=== PATIENT | male | born 1985 | race American Indian/Alaskan Native ===

== ENCOUNTER 2019-07-07 13:36 | Inpatient (IN) | payer MEDICAID ==
--- NOTE | 2019-07-07 14:30 | Emergency Department Report ---
ED Chest Pain HPI - General Chief Complaint: Chest Pain Stated Complaint: CHEST PAIN Time Seen by Provider: 07/07/19 14:27 Source: patient, EMS Mode of arrival: Stretcher Limitations: Physical Limitation - History of Present Illness Initial Comments: This is a 34-year-old man with severely disabling juvenile rheumatoid arthritis. He has had chest pain for the last 2 days. It is somewhat pleuritic but not associated with shortness of breath. Does not report significant cough. Substernal dull left nonradiating. Patient states he has not had this before. He has no prior history of VTE. Patient has a history of bilateral femur fractures. He is bedridden. His mother is on Coumadin for previous VTE. She states that she is having a hematological workup to see if she can, off Coumadin now. MD Complaint: chest pain Quality: dull Consistency: intermittent, now resolved Worsens With: inspiration re: denies: nausea, vomting, diaphoresis Other Symptoms: denies: cough, fever, syncope Treatments Prior to Arrival: none - Related Data Previous Rx's Medication Instructions Recorded Last Taken Type traMADol [Ultram 50 MG tab] 50 mg PO Q6HR PRN #12 tablet 04/01/16 Unknown Rx Acetaminophen/Codeine [Tylenol 1 tab PO Q6H PRN #16 tab 05/11/18 Unknown Rx /Codeine # 3 tab] Ibuprofen [Motrin] 600 mg PO Q8H PRN #15 tablet 05/11/18 Unknown Rx cephALEXin [Keflex] 500 mg PO Q8HR 7 Days #21 cap 05/11/18 Unknown Rx Allergies Allergy/AdvReac Type Severity Reaction Status Date / Time No Known Allergies Allergy Verified 05/11/18 14:16 Heart Score - HEART Score History: Slightly suspicious EKG: Non-specific Age: < 45 Risk factors: 1-2 risk factors Troponin: < normal limit HEART Score: 2 - Critical Actions Critical Actions: 0-3 pts:0.9-1.7%risk of adverse cardiac event.Candidate for discharge ED Review of Systems ROS: Stated complaint: CHEST PAIN Other details as noted in HPI Constitutional: denies: chills, fever Eyes: denies: eye pain, eye discharge, vision change ENT: denies: ear pain, throat pain Respiratory: denies: cough, shortness of breath, wheezing Cardiovascular: chest pain. denies: palpitations Endocrine: no symptoms reported Gastrointestinal: denies: abdominal pain, nausea, diarrhea Genitourinary: denies: urgency, dysuria Musculoskeletal: denies: back pain, joint swelling, arthralgia Skin: denies: rash, lesions Neurological: denies: headache, weakness, paresthesias Psychiatric: denies: anxiety, depression Hematological/Lymphatic: denies: easy bleeding, easy bruising ED Past Medical Hx - Past Medical History Previous Medical History?: Yes Hx Arthritis: Yes (rheumatoid) Additional medical history: bilateral femur - Surgical History Past Surgical History?: Yes Additional Surgical History: bilateral femur surgery - Social History Smoking Status: Never Smoker Substance Use Type: Alcohol - Medications Home Medications: Home Medications Medication Instructions Recorded Confirmed Last Taken Type traMADol [Ultram 50 MG tab] 50 mg PO Q6HR PRN #12 tablet 04/01/16 Unknown Rx Acetaminophen/Codeine [Tylenol 1 tab PO Q6H PRN #16 tab 05/11/18 Unknown Rx /Codeine # 3 tab] Ibuprofen [Motrin] 600 mg PO Q8H PRN #15 tablet 05/11/18 Unknown Rx cephALEXin [Keflex] 500 mg PO Q8HR 7 Days #21 cap 05/11/18 Unknown Rx ED Physical Exam - General Limitations: Physical Limitation General appearance: alert, in no apparent distress - Head Head exam: Present: atraumatic, normocephalic - Eye Eye exam: Present: normal appearance. Absent: scleral icterus - ENT ENT exam: Present: mucous membranes moist - Neck Neck exam: Absent: tenderness, meningismus, full ROM (Limited range of motion) - Respiratory Respiratory exam: Present: normal lung sounds bilaterally. Absent: respiratory distress, chest wall tenderness - Cardiovascular Cardiovascular Exam: Present: normal rhythm, tachycardia. Absent: systolic murmur, diastolic murmur, rubs, gallop - GI/Abdominal GI/Abdominal exam: Present: soft, normal bowel sounds. Absent: distended, tenderness, guarding, rebound, rigid - Rectal Rectal exam: Present: deferred - Extremities Exam Extremities exam: Present: other (both legs held in the fixed flexed position at the knee. There is no gross calf tenderness. There is disabling joint deformity of both hands. There is atrophy of both the upper and lower extremities.). Absent: pedal edema - Back Exam Back exam: Present: other (unable to visualize) - Neurological Exam Neurological exam: Present: alert, oriented X3, CN II-XII intact (as tested), motor sensory deficit (patient has extremely limited motion of both his upper and lower extremities. 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 Absent: rash ED Course Vital Signs 07/07/19 07/07/19 07/07/19 14:13 14:21 14:28 Temperature 98.9 F 98.9 F Pulse Rate 109 H 109 H 109 H Respiratory 27 H 27 H Rate Blood Pressure 136/97 Blood Pressure 136/97 [Left] O2 Sat by Pulse 100 100 Oximetry - Reevaluation(s) Reevaluation #1: An EJ was placed right neck without difficulty. I cannot obtain a CTA. This the patient's only intravenous access. We will have to go with radionuclide study. The patient will be admitted to Dr. Brar for further care and evaluation we will see if he would like to begin empiric anticoagulation. 07/07/19 17:13 - EJ/Peripheral Line Neck R Time Out Performed: Yes Indications: nurses unable to establis Skin Cleansed in Sterile Fashion: Yes Size: 20 Dressing Placed: Tegaderm Patient Tolerated Procedure: well SHELLY score - Shelly Score Age > 65: (0) No Aspirin use within the Past 7 Days: (0) No 3 or more CAD Risk Factors: (0) No 2 or more Angina events in past 24 hrs: (0) No Known CAD with more than 50% Stenosis: (0) No Elevated Cardiac Markers: (0) No ST Deviation Greater than 0.5mm: (0) No SHELLY Score: 0 ED Medical Decision Making - Lab Data Result diagrams: 07/07/19 15:28 07/07/19 15:30 Laboratory Results - last 24 hr 07/07/19 07/07/19 07/07/19 15:28 15:29 15:30 WBC 6.7 RBC 4.75 Hgb 12.9 Hct 38.9 MCV 82 L MCH 27 L MCHC 33 RDW 14.2 Plt Count 222 Lymph % (Auto) 12.5 L [place] % (Auto) 6.4 Eos % (Auto) 2.6 Baso % (Auto) 0.6 Lymph # 0.8 L [place] # 0.4 Eos # 0.2 Baso # 0.0 Seg Neutrophils % 77.9 H Seg Neutrophils # 5.2 PT 13.1 INR 1.02 APTT 29.5 D-Dimer 848.66 H Sodium 139 Potassium 3.9 Chloride 100.7 Carbon Dioxide 25 Anion Gap 17 BUN 6 L Creatinine 0.4 L Estimated GFR > 60 BUN/Creatinine Ratio 15 Glucose 78 Calcium 9.3 Total Bilirubin 0.30 Direct Bilirubin < 0.2 Indirect Bilirubin 0.1 AST 14 ALT 8 Alkaline Phosphatase 127 Troponin T < 0.010 Total Protein 8.1 Albumin 3.9 Albumin/Globulin Ratio 0.9 Urine Color Urine Turbidity Urine pH Ur Specific [place] Urine Protein Urine Glucose (UA) Urine Ketones Urine Blood Urine Nitrite Urine Bilirubin Urine Urobilinogen Ur Leukocyte Esterase Urine WBC (Auto) Urine RBC (Auto) U Epithel Cells (Auto) Urine Mucus Urine Opiates Screen Urine Methadone Screen Ur Barbiturates Screen Ur Phencyclidine Scrn Ur Amphetamines Screen U Benzodiazepines Scrn Urine Cocaine Screen U Marijuana (THC) Screen 07/07/19 07/07/19 16:24 16:24 WBC RBC Hgb Hct MCV MCH MCHC RDW Plt Count Lymph % (Auto) [place] % (Auto) Eos % (Auto) Baso % (Auto) Lymph # [place] # Eos # Baso # Seg Neutrophils % Seg Neutrophils # PT INR APTT D-Dimer Sodium Potassium Chloride Carbon Dioxide Anion Gap BUN Creatinine Estimated GFR BUN/Creatinine Ratio Glucose Calcium Total Bilirubin Direct Bilirubin Indirect Bilirubin AST ALT Alkaline Phosphatase Troponin T Total Protein Albumin Albumin/Globulin Ratio Urine Color Yellow Urine Turbidity Clear Urine pH 7.0 Ur Specific [place] 1.013 Urine Protein <15 mg/dl Urine Glucose (UA) Neg Urine Ketones Neg Urine Blood Neg Urine Nitrite Neg Urine Bilirubin Neg Urine Urobilinogen < 2.0 Ur Leukocyte Esterase Neg Urine WBC (Auto) < 1.0 Urine RBC (Auto) 3.0 U Epithel Cells (Auto) 3.0 Urine Mucus Few Urine Opiates Screen Presumptive negative Urine Methadone Screen Presumptive negative Ur Barbiturates Screen Presumptive negative Ur Phencyclidine Scrn Presumptive negative Ur Amphetamines Screen Presumptive negative U Benzodiazepines Scrn Presumptive negative Urine Cocaine Screen Presumptive negative U Marijuana (THC) Screen Presumptive negative - EKG Data -: EKG Interpreted by Tx EKG shows normal: sinus rhythm Rate: normal - EKG Data Interpretation: other (diffuse J-point elevation consider pericarditis no evidence of ST elevation VA/reciprocal changes) - Radiology Data Radiology results: image reviewed (chest x-ray no acute process) Critical care attestation.: If time is entered above; I have spent that time in minutes in the direct care of this critically ill patient, excluding procedure time. ED Disposition Clinical Impression: Elevated d-dimer Chest pain Qualifiers: Chest pain type: unspecified Qualified Code(s): R07.9 - Chest pain, unspecified Rheumatoid arthritis Qualifiers: Rheumatoid arthritis location: multiple sites Rheumatoid factor presence: unspecified presence Qualified Code(s): M06.9 - Rheumatoid arthritis, unspecified Disposition: 09 OP ADMIT IP TO THIS HOSP Is pt being admited?: Yes Does the pt Need Aspirin: Yes Condition: Stable Instructions: Chest Pain (ED) Referrals: MARY ABDI MD [Primary Care Provider] - 3-5 Days Time of Disposition: 17:16
--- NOTE | 2019-07-07 15:36 | XRay Report ---
CHEST 1 VIEW INDICATION: Chest Pain. COMPARISON: None FINDINGS: Support devices: None. Heart: Within normal limits. Lungs/Pleura: No acute air space or interstitial disease. Additional findings: None. IMPRESSION: No acute findings. Signer Name: Leland Smith Jr, MD Signed: 07/07/2019 3:32 PM Workstation Name: [id number]
[2019-07-07 15:39] LABS: Basophils % (Auto) 0.6 % (0.0-1.8); Eosinophils # (Auto) 0.2 K/mm3 (0.0-0.4); Eosinophils % (Auto) 2.6 % (0.0-4.3); Hematocrit 38.9 % (35.5-45.6); Hemoglobin 12.9 gm/dl (11.8-15.2); Lymphocytes # (Auto) 0.8 K/mm3 (1.2-5.4); Lymphocytes % (Auto) 12.5 % (13.4-35.0); Mean Corpuscular HGB Conc 33 % (32-34); Mean Corpuscular Volume 82 fl (84-94); Monocytes # (Auto) 0.4 K/mm3 (0.0-0.8); Monocytes % (Auto) 6.4 % (0.0-7.3); Platelet Count 222 K/mm3 (140-440); Red Blood Count 4.75 M/mm3 (3.65-5.03); Red Cell Distribution Width 14.2 % (13.2-15.2)
[2019-07-07 15:48] LABS: INR 1.02 (0.87-1.13)
[2019-07-07 15:49] LABS: Partial Thromboplastin Time 29.5 Sec. (24.2-36.6)
[2019-07-07 16:12] LABS: Alanine Aminotransferase 8 units/L (7-56); Albumin 3.9 g/dL (3.9-5); BUN/Creatinine Ratio 15; Bilirubin,Direct < 0.2 mg/dL (0-0.2); Blood Urea Nitrogen 6 mg/dL (9-20); Calcium 9.3 mg/dL (8.4-10.2); Hemolysis Index 31
[2019-07-07 16:38] LABS: Bilirubin,Urine NEG (Negative); Blood,Urine NEG (Negative); Color,Urine Yellow (Yellow); Mucus,Urine FEW /HPF; Protein,Urine <15 mg/dL mg/dL (Negative); Urobilinogen,Urine < 2.0 mg/dL (<2.0); WBC,Urine < 1.0 /HPF (0.0-6.0)
[2019-07-07 16:56] LABS: Amphetamine Screen,Urine PRESUMPTIVE NEGATIVE; Benzodiazepines Screen,Urine PRESUMPTIVE NEGATIVE; Cannabinoid Screen,Urine PRESUMPTIVE NEGATIVE; Cocaine Screen,Urine PRESUMPTIVE NEGATIVE; Methadone Screen,Urine PRESUMPTIVE NEGATIVE; Opiate Screen,Urine PRESUMPTIVE NEGATIVE
[2019-07-07] MEDS ORDERED: ASPIRIN PO ONE (17:16)
[2019-07-07] MEDS ORDERED: NORCO 5/325 PO ONE (19:07)
--- NOTE | 2019-07-07 19:53 | Nuclear Medicine Report ---
Nuclear medicine ventilation/perfusion lung scan Indication: Shortness of breath Technique: 20.9 mCi of Xenon-133 were given by inhalation. 4.2 mCi of Tc 99m MAA were given by IV. Findings: Comparison with chest radiograph from earlier the same day. Wash-in, equilibrium, and wash-out phases of ventilation are normal. No air-trapping is seen. Perfusion images are unremarkable; specifically, no wedge-shaped, pleural-based, segmental defects ar e seen. Impression: Normal V/Q scan. Signer Name: Gabe Leigh MD Signed: 07/07/2019 7:49 PM Workstation Name: [id number]
[2019-07-07] MEDS: MORPHINE IV PRN (22:47)
[2019-07-07] MEDS ORDERED: SODIUM CHLORIDE FLUSH SYRINGE 10 ML IV PRN (23:05)
[2019-07-07] MEDS ORDERED: ZOFRAN IV PRN (23:05)
[2019-07-07] MEDS ORDERED: REGLAN IV PRN (23:05)
[2019-07-07] MEDS ORDERED: TYLENOL PO PRN (23:05)
[2019-07-08] MEDS: SODIUM CHLORIDE FLUSH SYRINGE 10 ML IV SCH ×3 (01:50→21:02)
[2019-07-08] MEDS: DILAUDID IV PRN ×3 (02:27→23:22)
--- NOTE | 2019-07-08 03:59 | Event Note ---
Date: 07/07/19 See h/p in reports Chest pain r/o Nataly nAtunez--Juvenole RA with multiple contraxctures
--- NOTE | 2019-07-08 04:29 | History and Physical Report ---
CHIEF COMPLAINT: Left-sided chest pain for 2 days. HISTORY OF PRESENT ILLNESS: A 34-year-old male with disabling juvenile rheumatoid arthritis and multiple contractures, comes in for left-sided chest pain of 2 days' duration. Chest pain is intermittent. No shortness of breath. No palpitations or diaphoresis. No exacerbating or relieving factors. The patient never had any cardiac cath or stress test. The patient has a history of bilateral femur fractures. The patient is bedridden. The patient is on Coumadin to prevent DVTs. PAST MEDICAL HISTORY: Juvenile rheumatoid arthritis. Bilateral femur deformities with surgeries. PAST SURGICAL HISTORY: Bilateral femur surgery. SOCIAL HISTORY: Does not smoke. Alcohol occasionally. FAMILY HISTORY: Hypertension. REVIEW OF SYSTEMS: Significant for contractions all over and also intermittent chest pain for the last 2 days. PHYSICAL EXAMINATION: GENERAL: Young male, cooperative during the examination. VITAL SIGNS: Blood pressure is 122/87, temperature is 99.9, pulse is 88, respirations are 18. HEENT: Unremarkable. Pupils equal and reactive. NECK: Supple, no lymphadenopathy, no thyromegaly. LUNGS: Clear to auscultation and percussion. Good air entry. CARDIOVASCULAR: S1, S2 heard. No gallop, no murmur, no rub. Apical impulse in left fifth intercostal space and midclavicular line. ABDOMEN: Soft and benign. No hepatosplenomegaly. No guarding, no rigidity. Hernial orifices are normal. EXTREMITIES: Multiple contractures present in both upper and lower extremities. CENTRAL NERVOUS SYSTEM: Alert and oriented x 4, nonfocal exam. LABORATORY DATA: Significant for normal CBC with a low MCH and MCHC. D-dimer is 848.66. Electrolytes are normal. Urine is normal. Drug screen is normal. The patient's pulmonary perfusion imaging is negative. Chest x-ray, no acute findings. EKG shows sinus rhythm, heart rate of 96 per minute, no acute ST-T wave changes, LVH pattern present. ASSESSMENT AND PLAN: 1. Chest pain, rule out myocardial infarction, chest pain protocol. The patient to get a Lexiscan in the morning. 2. Elevated D-dimer. Pulmonary embolism ruled out. V/Q scan is negative. 3. Juvenile rheumatoid arthritis, analgesics and Supportive care. 4. Deep venous thrombosis prophylaxis, Lovenox 40 mg subcutaneous daily. JOB# [id number] MITZI/TANA DUMONT
[2019-07-08] MEDS: NACL 0.9% 1000 ML 1,000 ML IV SCH ×2 (05:33→17:51)
[2019-07-08] MEDS: PERCOCET 5/325 PO PRN (08:42)
--- NOTE | 2019-07-08 11:42 | Progress Note ---
Assessment and Plan Assessment and plan: Chest pain Stress test but could not be done because he had a VQ scan yesterday Aspirin 325 by mouth daily Add Metoprolol 12.5mg bid Rheumatoid arthritis Supportive care Elevated d-dimer Doppler US legs neg V/Q scan normal Full code status History Interval history: Chest pain Hospitalist Physical - Physical exam Narrative exam: Gen: Not in acute distress, lying in bed, HEENT: Normocephalic, atraumatic Neck: supple, no JVD Heart: S1 and S2 reg, no murmurs, rubs or gallop Lungs: Clear, no crackles, no rhonchi Abd: soft, non tender, non distended, normal BS, Ext: Contracted upper and lower ext, no cubbing, no cyanosis Neuro: Awake,alert,oriented, moves all ext - Constitutional Vitals: Temp Pulse Resp BP Pulse Ox 99.8 F H 108 H 14 116/77 99 07/08/19 08:04 07/08/19 10:00 07/08/19 08:04 07/08/19 08:04 07/08/19 08:04 Results - Labs CBC & Chem 7: 07/07/19 15:28 07/07/19 15:30 Labs: Laboratory Last Values WBC 6.7 K/mm3 (4.5-11.0) 07/07/19 15:28 RBC 4.75 M/mm3 (3.65-5.03) 07/07/19 15:28 Hgb 12.9 gm/dl (11.8-15.2) 07/07/19 15:28 Hct 38.9 % (35.5-45.6) 07/07/19 15:28 MCV 82 fl (84-94) L 07/07/19 15:28 MCH 27 pg (28-32) L 07/07/19 15:28 MCHC 33 % (32-34) 07/07/19 15:28 RDW 14.2 % (13.2-15.2) 07/07/19 15:28 Plt Count 222 K/mm3 (140-440) 07/07/19 15:28 Lymph % (Auto) 12.5 % (13.4-35.0) L 07/07/19 15:28 [place] % (Auto) 6.4 % (0.0-7.3) 07/07/19 15:28 Eos % (Auto) 2.6 % (0.0-4.3) 07/07/19 15:28 Baso % (Auto) 0.6 % (0.0-1.8) 07/07/19 15:28 Lymph # 0.8 K/mm3 (1.2-5.4) L 07/07/19 15:28 [place] # 0.4 K/mm3 (0.0-0.8) 07/07/19 15:28 Eos # 0.2 K/mm3 (0.0-0.4) 07/07/19 15:28 Baso # 0.0 K/mm3 (0.0-0.1) 07/07/19 15:28 Seg Neutrophils % 77.9 % (40.0-70.0) H 07/07/19 15:28 Seg Neutrophils # 5.2 K/mm3 (1.8-7.7) 07/07/19 15:28 PT 13.1 Sec. (12.2-14.9) 07/07/19 15:29 INR 1.02 (0.87-1.13) 07/07/19 15:29 APTT 29.5 Sec. (24.2-36.6) 07/07/19 15:29 848.66 ng/mlDDU (0-234) H 07/07/19 15:29 Sodium 139 mmol/L (137-145) 07/07/19 15:30 Potassium 3.9 mmol/L (3.6-5.0) 07/07/19 15:30 Chloride 100.7 mmol/L (98-107) 07/07/19 15:30 Carbon Dioxide 25 mmol/L (22-30) 07/07/19 15:30 17 mmol/L 07/07/19 15:30 BUN 6 mg/dL (9-20) L 07/07/19 15:30 0.4 mg/dL (0.8-1.5) L 07/07/19 15:30 Estimated GFR > 60 ml/min 07/07/19 15:30 15 % 07/07/19 15:30 Glucose 78 mg/dL (75-100) 07/07/19 15:30 Calcium 9.3 mg/dL (8.4-10.2) 07/07/19 15:30 0.30 mg/dL (0.1-1.2) 07/07/19 15:30 < 0.2 mg/dL (0-0.2) 07/07/19 15:30 0.1 mg/dL 07/07/19 15:30 AST 14 units/L (5-40) 07/07/19 15:30 ALT 8 units/L (7-56) 07/07/19 15:30 127 units/L (35-129) 07/07/19 15:30 < 0.010 ng/mL (0.00-0.029) 07/07/19 21:24 8.1 g/dL (6.3-8.2) 07/07/19 15:30 3.9 g/dL (3.9-5) 07/07/19 15:30 0.9 % 07/07/19 15:30 Yellow (Yellow) 07/07/19 16:24 Clear (Clear) 07/07/19 16:24 7.0 (5.0-7.0) 07/07/19 16:24 Ur Specific [place] 1.013 (1.003-1.030) 07/07/19 16:24 <15 mg/dl mg/dL (Negative) 07/07/19 16:24 Neg mg/dL (Negative) 07/07/19 16:24 Neg mg/dL (Negative) 07/07/19 16:24 Neg (Negative) 07/07/19 16:24 Neg (Negative) 07/07/19 16:24 Neg (Negative) 07/07/19 16:24 < 2.0 mg/dL (<2.0) 07/07/19 16:24 Ur Leukocyte Esterase Neg (Negative) 07/07/19 16:24 < 1.0 /HPF (0.0-6.0) 07/07/19 16:24 3.0 /HPF (0.0-6.0) 07/07/19 16:24 U Epithel Cells (Auto) 3.0 /HPF (0-13.0) 07/07/19 16:24 Few /HPF 07/07/19 16:24 Presumptive negative 07/07/19 16:24 Presumptive negative 07/07/19 16:24 Ur Barbiturates Screen Presumptive negative 07/07/19 16:24 Ur Phencyclidine Scrn Presumptive negative 07/07/19 16:24 Ur Amphetamines Screen Presumptive negative 07/07/19 16:24 U Benzodiazepines Scrn Presumptive negative 07/07/19 16:24 Presumptive negative 07/07/19 16:24 U Marijuana (THC) Screen Presumptive negative 07/07/19 16:24 Disclamer 07/07/19 16:24 Active Medications - Current Medications Current Medications: Generic Name Dose Route Start Last Admin Trade Name Freq PRN Reason Stop Dose Admin Acetaminophen 650 mg 07/07/19 23:05 Tylenol PO Q4H PRN Pain MILD(1-3)/Fever >100.5/GREGORY Hydromorphone HCl 0.5 mg 07/07/19 23:05 07/08/19 02:27 Dilaudid IV 0.5 mg Q3H PRN Administration Pain , Severe (7-10) Sodium Chloride 1,000 mls @ 75 mls/hr 07/07/19 23:45 07/08/19 05:33 Nacl 0.9% 1000 Ml IV 75 mls/hr DIRECT VIKA Administration Metoclopramide HCl 10 mg 07/07/19 23:05 Reglan IV Q6H PRN Nausea And Vomiting Morphine Sulfate 2 mg 07/07/19 22:32 07/07/19 22:47 Morphine IV 2 mg Q4H PRN Administration Pain, Moderate (4-6) Ondansetron HCl 4 mg 07/07/19 23:05 Zofran IV Q8H PRN Nausea And Vomiting Oxycodone/Acetaminophen 1 tab 07/07/19 23:05 07/08/19 08:42 Percocet 5/325 PO 1 tab Q6H PRN Administration Pain, Moderate (4-6) Sodium Chloride 10 ml 07/07/19 23:45 07/08/19 01:50 Sodium Chloride Flush Syringe 10 Ml IV Not Given BID VIKA Sodium Chloride 10 ml 07/07/19 23:05 Sodium Chloride Flush Syringe 10 Ml IV PRN PRN LINE FLUSH
--- NOTE | 2019-07-08 11:44 | Vascular Lab Report ---
DUPLEX DOPPLER LOWER EXTREMITY VEINS, BILATERAL INDICATION: elevated d-dimer. TECHNIQUE: Duplex doppler imaging was performed through the veins of both lower extremities using venous tatyana carmela and other maneuvers. The exam is somewhat limited secondary to patient's severe rheumatoid arthr itis contracted lower extremities COMPARISON: None available. FINDINGS: Right Common Femoral vein: Negative. Right Superficial Femoral vein: Negative. Right Popliteal vein: Negative. Right Calf veins: Negative. Left Common Femoral vein: Negative. Left Superficial Femoral vein: Negative. Left Popliteal vein: Negative. Left Calf veins: Negative. Additional findings: None. IMPRESSION: 1. No sonographic evidence for DVT in either lower extremity. Signer Name: Tavares Saucedo MD Signed: 07/08/2019 11:40 AM Workstation Name: [id number]
[2019-07-08] MEDS ORDERED: ECOTRIN PO SCH (12:00)
[2019-07-08] MEDS: MORPHINE IV PRN (12:22)
[2019-07-08 15:03] LABS: Basophils % (Auto) 0.4 % (0.0-1.8); Eosinophils # (Auto) 0.2 K/mm3 (0.0-0.4); Hematocrit 37.3 % (35.5-45.6); Lymphocytes # (Auto) 1.5 K/mm3 (1.2-5.4); Lymphocytes % (Auto) 19.4 % (13.4-35.0); Mean Corpuscular HGB Conc 32 % (32-34); Mean Corpuscular Volume 84 fl (84-94); Monocytes # (Auto) 0.8 K/mm3 (0.0-0.8); Monocytes % (Auto) 9.8 % (0.0-7.3); Red Blood Count 4.45 M/mm3 (3.65-5.03); Red Cell Distribution Width 14.4 % (13.2-15.2)
[2019-07-08 15:07] LABS: Platelet Count 190 K/mm3 (140-440)
[2019-07-08 15:22] LABS: Alanine Aminotransferase < 5 units/L (7-56); Albumin 3.1 g/dL (3.9-5); BUN/Creatinine Ratio 15; Blood Urea Nitrogen 6 mg/dL (9-20); Calcium 8.5 mg/dL (8.4-10.2); Hemolysis Index 4
--- NOTE | 2019-07-08 15:24 | Consultation ---
History of Present Illness Consult date: 07/08/19 Requesting physician: ADELINA PRATT Consult reason: chest pain History of present illness: Mr. Manriquez is a 34 y/o male with a past medical history of severe juvenile rheumatoid arthritis and bilateral femur fractures who presented to [facility] with chest pain x2 days. He describes it as substernal, sharp, pleuritic and nonradiating in nature with no associated shortness of breath. An EKG showed sinus rhythm with diffuse ST-elevations that are likely d/t early repolarization. Troponins are negative and a VQ scan is also negative for PE. An echocardiogram is pending. Past History Past Medical History: other (severe juvenile RA, bilateral femur fractures) Medications and Allergies Allergies Allergy/AdvReac Type Severity Reaction Status Date / Time No Known Allergies Allergy Verified 05/11/18 14:16 Home Medications Medication Instructions Recorded Confirmed Last Taken Type No Known Home Medications [No 07/07/19 07/07/19 Unknown History Reported Home Medications] Active Meds: Active Medications Acetaminophen (Tylenol) 650 mg PO Q4H PRN PRN Reason: Pain MILD(1-3)/Fever >100.5/GREGORY Aspirin (Ecotrin) 325 mg PO QDAY VIKA Last Admin: 07/08/19 12:21 Dose: 325 mg Documented by: Hydromorphone HCl (Dilaudid) 0.5 mg IV Q3H PRN PRN Reason: Pain , Severe (7-10) Last Admin: 07/08/19 02:27 Dose: 0.5 mg Documented by: Sodium Chloride (Nacl 0.9% 1000 Ml) 1,000 mls @ 75 mls/hr IV DIRECT VIKA Last Admin: 07/08/19 05:33 Dose: 75 mls/hr Documented by: Metoclopramide HCl (Reglan) 10 mg IV Q6H PRN PRN Reason: Nausea And Vomiting Morphine Sulfate (Morphine) 2 mg IV Q4H PRN PRN Reason: Pain, Moderate (4-6) Last Admin: 07/08/19 12:22 Dose: 2 mg Documented by: Ondansetron HCl (Zofran) 4 mg IV Q8H PRN PRN Reason: Nausea And Vomiting Oxycodone/Acetaminophen (Percocet 5/325) 1 tab PO Q6H PRN PRN Reason: Pain, Moderate (4-6) Last Admin: 07/08/19 08:42 Dose: 1 tab Documented by: Sodium Chloride (Sodium Chloride Flush Syringe 10 Ml) 10 ml IV BID VIKA Last Admin: 07/08/19 12:22 Dose: 10 ml Documented by: Sodium Chloride (Sodium Chloride Flush Syringe 10 Ml) 10 ml IV PRN PRN PRN Reason: LINE FLUSH Review of Systems All systems: negative Cardiovascular: chest pain Musculoskeletal: other (contractures) Physical Examination Last Vital Signs Temp 98.7 F 07/08/19 12:33 Pulse 96 H 07/08/19 12:33 Resp 14 07/08/19 12:33 BP 118/83 07/08/19 12:33 Pulse Ox 100 07/08/19 12:33 General appearance: other (multiple contractures) HEENT: Positive: PERRL Neck: Positive: neck supple Cardiac: Positive: Reg Rate and Rhythm Lungs: Positive: Normal Exam Neuro: Positive: Other (deferred) Abdomen: Positive: Unremarkable Male genitourinary: Positive: deferred Skin: Positive: Clear Musculoskeletal: Decreased Range of Motion, other (bedridden) Extremities: Present: Other (contracted) Results 07/08/19 14:17 07/08/19 14:17 Cardiac Enzymes 07/07/19 07/08/19 Range/Units 15:30 14:17 AST 14 10 (5-40) units/L Coagulation 07/07/19 Range/Units 15:29 PT 13.1 (12.2-14.9) Sec. INR 1.02 (0.87-1.13) APTT 29.5 (24.2-36.6) Sec. CBC 07/07/19 07/08/19 Range/Units 15:28 14:17 WBC 6.7 7.7 (4.5-11.0) K/mm3 RBC 4.75 4.45 (3.65-5.03) M/mm3 Hgb 12.9 12.0 (11.8-15.2) gm/dl Hct 38.9 37.3 (35.5-45.6) % Plt Count 222 190 (140-440) K/mm3 Lymph # 0.8 L 1.5 (1.2-5.4) K/mm3 [place] # 0.4 0.8 (0.0-0.8) K/mm3 Eos # 0.2 0.2 (0.0-0.4) K/mm3 Baso # 0.0 0.0 (0.0-0.1) K/mm3 Comprehensive Metabolic Panel 07/07/19 07/08/19 Range/Units 15:30 14:17 Sodium 139 138 (137-145) mmol/L Potassium 3.9 3.9 (3.6-5.0) mmol/L Chloride 100.7 102.6 (98-107) mmol/L Carbon Dioxide 25 24 (22-30) mmol/L BUN 6 L 6 L (9-20) mg/dL Creatinine 0.4 L 0.4 L (0.8-1.5) mg/dL Glucose 78 103 H (75-100) mg/dL Calcium 9.3 8.5 (8.4-10.2) mg/dL Direct Bilirubin < 0.2 (0-0.2) mg/dL Indirect Bilirubin 0.1 mg/dL AST 14 10 (5-40) units/L ALT 8 < 5 L (7-56) units/L Alkaline Phosphatase 127 100 (35-129) units/L Total Protein 8.1 6.7 (6.3-8.2) g/dL Albumin 3.9 3.1 L (3.9-5) g/dL - Imaging and Cardiology Echo: pending EKG interpretations - Telemetry EKG Rhythm: Sinus Rhythm (with diffuse ST elevation likely d/t early repol) Assessment and Plan Mr. Manriquez is a 34 y/o male admitted with chest pain for two days. He has a history of severe juvenile RA and b/l femur fractures. Echocardiogram is pending. Thus far, diagnostic workup is negative, so suspect chest pain is not of cardiac origin. Further recommendations pending hospital course. The patient was evaluated by Dr. Ayon, who developed assessment and plan. - Patient Problems (1) Chest pain, atypical Current Visit: Yes Status: Acute (2) Elevated d-dimer Current Visit: Yes Status: Acute (3) Rheumatoid arthritis Current Visit: Yes Status: Chronic Qualifiers: Rheumatoid arthritis location: multiple sites Rheumatoid factor presence: unspecified presence Qualified Code(s): M06.9 - Rheumatoid arthritis, unspecified
[2019-07-09] MEDS: MORPHINE IV PRN ×2 (02:34→17:18)
[2019-07-09] MEDS: NACL 0.9% 1000 ML 1,000 ML IV SCH ×2 (07:23→21:36)
[2019-07-09] MEDS: SODIUM CHLORIDE FLUSH SYRINGE 10 ML IV SCH ×2 (09:19→21:37)
--- NOTE | 2019-07-09 09:58 | Progress Note ---
Assessment and Plan Assessment and plan: Chest pain Stress test ordered but could not be done yet because he had a V/Q scan 07/07, Stress test tomorrow Cont Aspirin 325 by mouth daily Added Metoprolol 12.5mg bid cardiology following Rheumatoid arthritis Supportive care Elevated d-dimer Doppler US legs neg V/Q scan normal Full code status History Interval history: Still having Chest pain Hospitalist Physical - Physical exam Narrative exam: Gen: Not in acute distress, lying in bed, HEENT: Normocephalic, atraumatic Neck: supple, no JVD Heart: S1 and S2 reg, no murmurs, rubs or gallop Lungs: Clear, no crackles, no rhonchi Abd: soft, non tender, non distended, normal BS, Ext: Contracted upper and lower ext, no cubbing, no cyanosis Neuro: Awake,alert,oriented, moves all ext - Constitutional Vitals: Temp Pulse Resp BP Pulse Ox 99.1 F 109 H 16 90/56 97 07/09/19 08:20 07/09/19 08:20 07/09/19 08:20 07/09/19 08:20 07/09/19 08:20 General appearance: Present: other (multiple contractures) Results - Labs CBC & Chem 7: 07/08/19 14:17 07/08/19 14:17 Labs: Laboratory Last Values WBC 7.7 K/mm3 (4.5-11.0) 07/08/19 14:17 RBC 4.45 M/mm3 (3.65-5.03) 07/08/19 14:17 Hgb 12.0 gm/dl (11.8-15.2) 07/08/19 14:17 Hct 37.3 % (35.5-45.6) 07/08/19 14:17 MCV 84 fl (84-94) 07/08/19 14:17 MCH 27 pg (28-32) L 07/08/19 14:17 MCHC 32 % (32-34) 07/08/19 14:17 RDW 14.4 % (13.2-15.2) 07/08/19 14:17 Plt Count 190 K/mm3 (140-440) 07/08/19 14:17 Lymph % (Auto) 19.4 % (13.4-35.0) 07/08/19 14:17 [place] % (Auto) 9.8 % (0.0-7.3) H 07/08/19 14:17 Eos % (Auto) 2.0 % (0.0-4.3) 07/08/19 14:17 Baso % (Auto) 0.4 % (0.0-1.8) 07/08/19 14:17 Lymph # 1.5 K/mm3 (1.2-5.4) 07/08/19 14:17 [place] # 0.8 K/mm3 (0.0-0.8) 07/08/19 14:17 Eos # 0.2 K/mm3 (0.0-0.4) 07/08/19 14:17 Baso # 0.0 K/mm3 (0.0-0.1) 07/08/19 14:17 Seg Neutrophils % 68.4 % (40.0-70.0) 07/08/19 14:17 Seg Neutrophils # 5.3 K/mm3 (1.8-7.7) 07/08/19 14:17 PT 13.1 Sec. (12.2-14.9) 07/07/19 15:29 INR 1.02 (0.87-1.13) 07/07/19 15:29 APTT 29.5 Sec. (24.2-36.6) 07/07/19 15:29 848.66 ng/mlDDU (0-234) H 07/07/19 15:29 Sodium 138 mmol/L (137-145) 07/08/19 14:17 Potassium 3.9 mmol/L (3.6-5.0) 07/08/19 14:17 Chloride 102.6 mmol/L (98-107) 07/08/19 14:17 Carbon Dioxide 24 mmol/L (22-30) 07/08/19 14:17 15 mmol/L 07/08/19 14:17 BUN 6 mg/dL (9-20) L 07/08/19 14:17 0.4 mg/dL (0.8-1.5) L 07/08/19 14:17 Estimated GFR > 60 ml/min 07/08/19 14:17 15 % 07/08/19 14:17 Glucose 103 mg/dL (75-100) H 07/08/19 14:17 5.1 % (4-6) 07/08/19 14:17 Calcium 8.5 mg/dL (8.4-10.2) 07/08/19 14:17 0.20 mg/dL (0.1-1.2) 07/08/19 14:17 < 0.2 mg/dL (0-0.2) 07/07/19 15:30 0.1 mg/dL 07/07/19 15:30 AST 10 units/L (5-40) 07/08/19 14:17 ALT < 5 units/L (7-56) L 07/08/19 14:17 100 units/L (35-129) 07/08/19 14:17 < 0.010 ng/mL (0.00-0.029) 07/08/19 14:17 6.7 g/dL (6.3-8.2) 07/08/19 14:17 3.1 g/dL (3.9-5) L 07/08/19 14:17 0.9 % 07/08/19 14:17 Yellow (Yellow) 07/07/19 16:24 Clear (Clear) 07/07/19 16:24 7.0 (5.0-7.0) 07/07/19 16:24 Ur Specific [place] 1.013 (1.003-1.030) 07/07/19 16:24 <15 mg/dl mg/dL (Negative) 07/07/19 16:24 Neg mg/dL (Negative) 07/07/19 16:24 Neg mg/dL (Negative) 07/07/19 16:24 Neg (Negative) 07/07/19 16:24 Neg (Negative) 07/07/19 16:24 Neg (Negative) 07/07/19 16:24 < 2.0 mg/dL (<2.0) 07/07/19 16:24 Ur Leukocyte Esterase Neg (Negative) 07/07/19 16:24 < 1.0 /HPF (0.0-6.0) 07/07/19 16:24 3.0 /HPF (0.0-6.0) 07/07/19 16:24 U Epithel Cells (Auto) 3.0 /HPF (0-13.0) 07/07/19 16:24 Few /HPF 07/07/19 16:24 Presumptive negative 07/07/19 16:24 Presumptive negative 07/07/19 16:24 Ur Barbiturates Screen Presumptive negative 07/07/19 16:24 Ur Phencyclidine Scrn Presumptive negative 07/07/19 16:24 Ur Amphetamines Screen Presumptive negative 07/07/19 16:24 U Benzodiazepines Scrn Presumptive negative 07/07/19 16:24 Presumptive negative 07/07/19 16:24 U Marijuana (THC) Screen Presumptive negative 07/07/19 16:24 Disclamer 07/07/19 16:24 Active Medications - Current Medications Current Medications: Generic Name Dose Route Start Last Admin Trade Name Freq PRN Reason Stop Dose Admin Acetaminophen 650 mg 07/07/19 23:05 07/08/19 20:07 Tylenol PO 650 mg Q4H PRN Administration Pain MILD(1-3)/Fever >100.5/GREGORY Aspirin 324 mg 07/09/19 10:00 07/09/19 09:18 Baby Aspirin PO 324 mg QDAY VIKA Administration Hydromorphone HCl 0.5 mg 07/07/19 23:05 07/08/19 23:22 Dilaudid IV 0.5 mg Q3H PRN Administration Pain , Severe (7-10) Sodium Chloride 1,000 mls @ 75 mls/hr 07/07/19 23:45 07/09/19 07:23 Nacl 0.9% 1000 Ml IV 75 mls/hr DIRECT VIKA Administration Metoclopramide HCl 10 mg 07/07/19 23:05 Reglan IV Q6H PRN Nausea And Vomiting Morphine Sulfate 2 mg 07/07/19 22:32 07/09/19 02:34 Morphine IV 2 mg Q4H PRN Administration Pain, Moderate (4-6) Ondansetron HCl 4 mg 07/07/19 23:05 Zofran IV Q8H PRN Nausea And Vomiting Oxycodone/Acetaminophen 1 tab 07/07/19 23:05 07/08/19 08:42 Percocet 5/325 PO 1 tab Q6H PRN Administration Pain, Moderate (4-6) Sodium Chloride 10 ml 07/07/19 23:45 07/09/19 09:19 Sodium Chloride Flush Syringe 10 Ml IV 10 ml BID VIKA Administration Sodium Chloride 10 ml 08/16/19 23:05 Sodium Chloride Flush Syringe 10 Ml IV PRN PRN LINE FLUSH
[2019-07-09] MEDS ORDERED: BABY ASPIRIN PO SCH (10:00)
[2019-07-09] MEDS: PERCOCET 5/325 PO PRN (12:34)
--- NOTE | 2019-07-09 13:23 | Progress Note ---
Assessment and Plan An echocardiogram revealed a moderate-sized pericardial effusion, which is likely the source of his chest pain. Will cancel stress test. Recommend NSAIDs and colchicine for pain control. Also recommend connective tissue serologies and will order. The patient has been evaluated by Dr. Ayon, who performed the assessment and developed the plan of care. - Patient Problems (1) Chest pain Current Visit: Yes Status: Acute Qualifiers: Chest pain type: unspecified Qualified Code(s): R07.9 - Chest pain, unspecified (2) Pericardial effusion without cardiac tamponade Current Visit: Yes Status: Acute (3) Elevated d-dimer Current Visit: Yes Status: Acute (4) Rheumatoid arthritis Current Visit: Yes Status: Chronic Qualifiers: Rheumatoid arthritis location: multiple sites Rheumatoid factor presence: unspecified presence Qualified Code(s): M06.9 - Rheumatoid arthritis, unspecified Subjective Date of service: 07/09/19 Interval history: The patient is resting in bed in [facility]. He reports his pain is improving. An echocardiogram on 07/09/19 found an EF of 55 to 60 percent and a moderate circumferential pericardial effusion with no evidence of tamponade. Objective Last Vital Signs Temp 99.1 F 07/09/19 08:20 Pulse 109 H 07/09/19 08:20 Resp 18 07/09/19 10:00 BP 90/56 07/09/19 08:20 Pulse Ox 97 07/09/19 10:00 - Physical Examination HEENT: Positive: PERRL Neck: Positive: neck supple Cardiac: Positive: Reg Rate and Rhythm Lungs: Positive: Normal Exam Neuro: Positive: Other (deferred) Abdomen: Positive: Unremarkable /Rectal: Other (deferred) Skin: Positive: Clear Musculoskeletal: Decreased Range of Motion, other (bedridden) Extremities: Present: Other (contracted) - Labs and Meds Cardiac Enzymes 07/08/19 Range/Units 14:17 AST 10 (5-40) units/L CBC 07/08/19 Range/Units 14:17 WBC 7.7 (4.5-11.0) K/mm3 RBC 4.45 (3.65-5.03) M/mm3 Hgb 12.0 (11.8-15.2) gm/dl Hct 37.3 (35.5-45.6) % Plt Count 190 (140-440) K/mm3 Lymph # 1.5 (1.2-5.4) K/mm3 [place] # 0.8 (0.0-0.8) K/mm3 Eos # 0.2 (0.0-0.4) K/mm3 Baso # 0.0 (0.0-0.1) K/mm3 Comprehensive Metabolic Panel 07/08/19 Range/Units 14:17 Sodium 138 (137-145) mmol/L Potassium 3.9 (3.6-5.0) mmol/L Chloride 102.6 (98-107) mmol/L Carbon Dioxide 24 (22-30) mmol/L BUN 6 L (9-20) mg/dL Creatinine 0.4 L (0.8-1.5) mg/dL Glucose 103 H (75-100) mg/dL Calcium 8.5 (8.4-10.2) mg/dL AST 10 (5-40) units/L ALT < 5 L (7-56) units/L Alkaline Phosphatase 100 (35-129) units/L Total Protein 6.7 (6.3-8.2) g/dL Albumin 3.1 L (3.9-5) g/dL - Imaging and Cardiology Echo: pending, report reviewed (07/10/19: EF 55-60%. Moderate pericardial effusion with no evidence of tamponade. )
[2019-07-09] MEDS: DILAUDID IV PRN (21:36)
[2019-07-10] MEDS: DILAUDID IV PRN ×3 (02:23→20:32)
[2019-07-10] MEDS: COLCHICINE PO SCH ×2 (11:01→21:30)
[2019-07-10] MEDS: IBUPROFEN PO SCH ×4 (11:01→23:51)
[2019-07-10] MEDS: ASPIRIN PO SCH (11:03)
[2019-07-10] MEDS: SODIUM CHLORIDE FLUSH SYRINGE 10 ML IV SCH ×2 (11:14→21:31)
--- NOTE | 2019-07-10 11:31 | Progress Note ---
Assessment and Plan Pericarditis with pericardial effusion of moderate degree. No [place]ade Rheumatoid arthritis. Plan: Continue NSAID and colchicine. Subjective Date of service: 07/10/19 Interval history: C/O retrosternal pleuritic chest pain. Pain is less when he sleeps on his side(right and left lateral) Objective Vital Signs Temp Pulse Resp Resp BP Pulse Ox 07/10/19 11:00 116 H 07/10/19 08:37 18 07/10/19 07:36 99.7 F H 120 H 18 130/81 99 07/10/19 04:36 98.1 F 109 H 18 104/67 96 07/10/19 01:37 111 H 07/09/19 23:53 97.9 F 47 L 18 103/71 83 L 07/09/19 19:12 98.0 F 116 H 18 95/63 100 07/09/19 17:12 99.7 F H 113 H 16 110/78 96 07/09/19 12:33 18 95/69 - Physical Examination HEENT: Positive: PERRL Neck: Positive: neck supple Cardiac: Positive: S1/S2, Other (pericardial rub is heard over LSB) Neuro: Positive: Other (deferred) Abdomen: Positive: Unremarkable /Rectal: Other (deferred) Skin: Positive: Clear Musculoskeletal: Decreased Range of Motion, other (bedridden) Extremities: Present: Other (contracted) - Imaging and Cardiology Echo: pending, report reviewed (07/10/19: EF 55-60%. Moderate pericardial effusion with no evidence of tamponade. )
--- NOTE | 2019-07-10 15:36 | Progress Note ---
Assessment and Plan Assessment and plan: Chest pain due to acute pericarditis, pericardial effusion Cont Aspirin 325 by mouth daily Started on Ibuprofen, Colchicin as recommended by cardiology Acute pericarditis On NSAIDS, colchicine Moderate pericardial effusion. No tamponade Added Metoprolol 12.5mg bid cardiology following Rheumatoid arthritis Supportive care Deformed upper and lower ext and contractures from rheumatoid arthritis Elevated d-dimer Doppler US legs neg V/Q scan normal Full code status Functional quadriplegia from rheumatoid arthritis To tx home when chest pain subsided. History Interval history: Still having Chest pain No shortness of breath Hospitalist Physical - Physical exam Narrative exam: Gen: Not in acute distress, lying in bed, HEENT: Normocephalic, atraumatic Neck: supple, no JVD Heart: S1 and S2 reg, no murmurs, rubs or gallop Lungs: Clear, no crackles, no rhonchi Abd: soft, non tender, non distended, normal BS, Ext: Contracted upper and lower ext, no cubbing, no cyanosis Neuro: Awake,alert,oriented, moves all ext - Constitutional Vitals: Temp Pulse Resp BP Pulse Ox 98.8 F 113 H 16 122/81 98 07/10/19 11:45 07/10/19 11:45 07/10/19 11:45 07/10/19 11:45 07/10/19 11:45 General appearance: Present: other (multiple contractures) Results - Labs CBC & Chem 7: 07/08/19 14:17 07/08/19 14:17 Labs: Laboratory Last Values WBC 7.7 K/mm3 (4.5-11.0) 07/08/19 14:17 RBC 4.45 M/mm3 (3.65-5.03) 07/08/19 14:17 Hgb 12.0 gm/dl (11.8-15.2) 07/08/19 14:17 Hct 37.3 % (35.5-45.6) 07/08/19 14:17 MCV 84 fl (84-94) 07/08/19 14:17 MCH 27 pg (28-32) L 07/08/19 14:17 MCHC 32 % (32-34) 07/08/19 14:17 RDW 14.4 % (13.2-15.2) 07/08/19 14:17 Plt Count 190 K/mm3 (140-440) 07/08/19 14:17 Lymph % (Auto) 19.4 % (13.4-35.0) 07/08/19 14:17 [place] % (Auto) 9.8 % (0.0-7.3) H 07/08/19 14:17 Eos % (Auto) 2.0 % (0.0-4.3) 07/08/19 14:17 Baso % (Auto) 0.4 % (0.0-1.8) 07/08/19 14:17 Lymph # 1.5 K/mm3 (1.2-5.4) 07/08/19 14:17 [place] # 0.8 K/mm3 (0.0-0.8) 07/08/19 14:17 Eos # 0.2 K/mm3 (0.0-0.4) 07/08/19 14:17 Baso # 0.0 K/mm3 (0.0-0.1) 07/08/19 14:17 Seg Neutrophils % 68.4 % (40.0-70.0) 07/08/19 14:17 Seg Neutrophils # 5.3 K/mm3 (1.8-7.7) 07/08/19 14:17 ESR 68 mm/Hr (0-20) 07/10/19 08:00 PT 13.1 Sec. (12.2-14.9) 07/07/19 15:29 INR 1.02 (0.87-1.13) 07/07/19 15:29 APTT 29.5 Sec. (24.2-36.6) 07/07/19 15:29 848.66 ng/mlDDU (0-234) H 07/07/19 15:29 Sodium 138 mmol/L (137-145) 07/08/19 14:17 Potassium 3.9 mmol/L (3.6-5.0) 07/08/19 14:17 Chloride 102.6 mmol/L (98-107) 07/08/19 14:17 Carbon Dioxide 24 mmol/L (22-30) 07/08/19 14:17 15 mmol/L 07/08/19 14:17 BUN 6 mg/dL (9-20) L 07/08/19 14:17 0.4 mg/dL (0.8-1.5) L 07/08/19 14:17 Estimated GFR > 60 ml/min 07/08/19 14:17 15 % 07/08/19 14:17 Glucose 103 mg/dL (75-100) H 07/08/19 14:17 5.1 % (4-6) 07/08/19 14:17 Calcium 8.5 mg/dL (8.4-10.2) 07/08/19 14:17 0.20 mg/dL (0.1-1.2) 07/08/19 14:17 < 0.2 mg/dL (0-0.2) 07/07/19 15:30 0.1 mg/dL 07/07/19 15:30 AST 10 units/L (5-40) 07/08/19 14:17 ALT < 5 units/L (7-56) L 07/08/19 14:17 100 units/L (35-129) 07/08/19 14:17 < 0.010 ng/mL (0.00-0.029) 07/08/19 14:17 26.20 mg/dL (0.00-1.30) H 07/10/19 06:21 6.7 g/dL (6.3-8.2) 07/08/19 14:17 3.1 g/dL (3.9-5) L 07/08/19 14:17 0.9 % 07/08/19 14:17 Yellow (Yellow) 07/07/19 16:24 Clear (Clear) 07/07/19 16:24 7.0 (5.0-7.0) 07/07/19 16:24 Ur Specific [place] 1.013 (1.003-1.030) 07/07/19 16:24 <15 mg/dl mg/dL (Negative) 07/07/19 16:24 Neg mg/dL (Negative) 07/07/19 16:24 Neg mg/dL (Negative) 07/07/19 16:24 Neg (Negative) 07/07/19 16:24 Neg (Negative) 07/07/19 16:24 Neg (Negative) 07/07/19 16:24 < 2.0 mg/dL (<2.0) 07/07/19 16:24 Ur Leukocyte Esterase Neg (Negative) 07/07/19 16:24 < 1.0 /HPF (0.0-6.0) 07/07/19 16:24 3.0 /HPF (0.0-6.0) 07/07/19 16:24 U Epithel Cells (Auto) 3.0 /HPF (0-13.0) 07/07/19 16:24 Few /HPF 07/07/19 16:24 Presumptive negative 07/07/19 16:24 Presumptive negative 07/07/19 16:24 Ur Barbiturates Screen Presumptive negative 07/07/19 16:24 Ur Phencyclidine Scrn Presumptive negative 07/07/19 16:24 Ur Amphetamines Screen Presumptive negative 07/07/19 16:24 U Benzodiazepines Scrn Presumptive negative 07/07/19 16:24 Presumptive negative 07/07/19 16:24 U Marijuana (THC) Screen Presumptive negative 07/07/19 16:24 Disclamer 07/07/19 16:24 91 IU/ml (0-13) H 07/10/19 06:21 Active Medications - Current Medications Current Medications: Generic Name Dose Route Start Last Admin Trade Name Freq PRN Reason Stop Dose Admin Acetaminophen 650 mg 07/07/19 23:05 07/08/19 20:07 Tylenol PO 650 mg Q4H PRN Administration Pain MILD(1-3)/Fever >100.5/GREGORY Aspirin 325 mg 07/10/19 10:00 07/10/19 11:03 Aspirin PO 325 mg QDAY VIKA Administration Colchicine 0.6 mg 07/10/19 09:00 07/10/19 11:01 Colchicine PO 0.6 mg BID VKIA Administration Hydromorphone HCl 0.5 mg 07/07/19 23:05 07/10/19 08:18 Dilaudid IV 0.5 mg Q3H PRN Administration Pain , Severe (7-10) Sodium Chloride 1,000 mls @ 75 mls/hr 07/07/19 23:45 07/09/19 21:36 Nacl 0.9% 1000 Ml IV 75 mls/hr DIRECT VIKA Administration Ibuprofen 600 mg 07/10/19 09:00 07/10/19 13:57 Ibuprofen PO Not Given Q6HR VIKA Metoclopramide HCl 10 mg 07/07/19 23:05 Reglan IV Q6H PRN Nausea And Vomiting Morphine Sulfate 2 mg 07/07/19 22:32 07/09/19 17:18 Morphine IV 2 mg Q4H PRN Administration Pain, Moderate (4-6) Ondansetron HCl 4 mg 07/07/19 23:05 Zofran IV Q8H PRN Nausea And Vomiting Oxycodone/Acetaminophen 1 tab 07/07/19 23:05 07/09/19 12:34 Percocet 5/325 PO 1 tab Q6H PRN Administration Pain, Moderate (4-6) Sodium Chloride 10 ml 07/07/19 23:45 07/10/19 11:14 Sodium Chloride Flush Syringe 10 Ml IV 10 ml BID VIKA Administration Sodium Chloride 10 ml 07/07/19 23:05 Sodium Chloride Flush Syringe 10 Ml IV PRN PRN LINE FLUSH
[2019-07-10] MEDS: NACL 0.9% 1000 ML 1,000 ML IV SCH (17:40)
[2019-07-11 05:52] LABS: Hematocrit 34.1 % (35.5-45.6); Hemoglobin 11.4 gm/dl (11.8-15.2); Mean Corpuscular HGB Conc 34 % (32-34); Mean Corpuscular Volume 82 fl (84-94); Platelet Count 250 K/mm3 (140-440); Red Blood Count 4.18 M/mm3 (3.65-5.03); Red Cell Distribution Width 14.3 % (13.2-15.2)
[2019-07-11] MEDS: IBUPROFEN PO SCH ×2 (05:59→14:37)
[2019-07-11] MEDS: NACL 0.9% 1000 ML 1,000 ML IV SCH (06:00)
[2019-07-11 06:17] LABS: BUN/Creatinine Ratio 23; Blood Urea Nitrogen 9 mg/dL (9-20); Calcium 8.3 mg/dL (8.4-10.2); Hemolysis Index 2
--- NOTE | 2019-07-11 09:39 | Discharge Summary ---
Providers - Providers Date of Admission: 07/07/19 17:17 Date of discharge: 07/11/19 Attending physician: JEROME CHA 07/08/19 11:53 Consult to Physician [CONS] Routine Comment: Consulting Provider: OSKAR BARKSDALE Physician Instructions: Reason For Exam: Chest pain Primary care physician: [facility], Hospitalization Reason for admission: pericarditis Condition: Stable Hospital course: Mr. Manriquez is a 34 y/o male with a past medical history of severe juvenile rheumatoid arthritis and bilateral femur fractures who presented to [facility] with chest pain x2 days. He described it as substernal, sharp, pleuritic and nonradiating in nature with no associated shortness of breath. An EKG showed sinus rhythm with diffuse ST-elevations that were likely secondary to pericarditis. Troponins were negative and a VQ scan was also negative for PE. An echocardiogram was completed and confirmed diagnosis of pericarditis with pericardial effusion of moderate degree. The patient was treated with NSAIDs and colchicine. The patient was seen by cardiology in consultation. Patient will be discharged home. Dedicated discharge time 35 minutes. Disposition: DC-01 TO HOME OR SELFCARE Time spent for discharge: 35 - Discharge Diagnoses (1) Chest pain Status: Acute Qualifiers: Chest pain type: unspecified Qualified Code(s): R07.9 - Chest pain, unspecified (2) Chest pain, atypical Status: Acute (3) Pericardial effusion without cardiac tamponade Status: Acute (4) Rheumatoid arthritis Status: Chronic Qualifiers: Rheumatoid arthritis location: multiple sites Rheumatoid factor presence: unspecified presence Qualified Code(s): M06.9 - Rheumatoid arthritis, unspecified Core Measure Documentation - Palliative Care Palliative Care/ Comfort Measures: Not Applicable - Core Measures Any of the following diagnoses?: none Exam - Constitutional Vitals: Temp Pulse Resp BP Pulse Ox 97.7 F 95 H 18 101/72 99 07/11/19 03:47 07/11/19 03:47 07/11/19 03:47 07/11/19 03:47 07/11/19 03:47 General appearance: Present: no acute distress, well-nourished - EENT Eyes: Present: PERRL ENT: hearing intact, clear oral mucosa - Neck Neck: Present: supple, normal ROM - Respiratory Respiratory effort: normal Respiratory: bilateral: CTA - Cardiovascular Heart Sounds: Present: S1 & S2. Absent: rub, click - Extremities Extremities: pulses symmetrical, No edema Peripheral Pulses: within normal limits - Abdominal General gastrointestinal: Present: soft, non-tender, non-distended, normal bowel sounds Male genitourinary: Present: normal - Integumentary Integumentary: Present: clear, warm, dry - Musculoskeletal Musculoskeletal: gait normal, strength equal bilaterally - Psychiatric Psychiatric: appropriate mood/affect, intact judgment & insight - Neurologic Neurologic: CNII-XII intact, moves all extremities Plan Activity: advance as tolerated Weight Bearing Status: Weight Bear as Tolerated Diet: regular [facility] [Primary Care Provider[facility] - 3-5 Days Prescriptions: Aspirin 325 mg PO QDAY #30 tablet Colchicine 0.6 mg PO BID #60 capsule Ibuprofen [Motrin 600 MG tab] 600 mg PO Q6HR #30 tablet oxyCODONE /ACETAMINOPHEN [Percocet 5/325 mg] 1 tab PO Q6H PRN #12 tablet PRN Reason: Pain, Moderate (4-6)
[2019-07-11 09:47] VITALS: BP 110/73
[2019-07-11] MEDS: SODIUM CHLORIDE FLUSH SYRINGE 10 ML IV SCH (10:34)
[2019-07-11] MEDS: ASPIRIN PO SCH (10:34)
[2019-07-11] MEDS: COLCHICINE PO SCH (10:34)
--- NOTE | 2019-07-11 12:17 | Progress Note ---
Assessment and Plan Currently stable cardiac status. pt may discharge home from cardiology standpoint. At discharge, recommend continuation of NSAID for 2 weeks and colchicine for 6 months. Recommend follow up in our office with Dr. Castillo within 1-2 weeks of hospital discharge ([phone]). The patient has been seen in conjunction with Dr. Castillo who agrees with the assessment and plan of care. - Patient Problems (1) Pericarditis Current Visit: Yes Status: Acute (2) Pericardial effusion without cardiac tamponade Current Visit: Yes Status: Acute (3) Rheumatoid arthritis Current Visit: Yes Status: Chronic Qualifiers: Rheumatoid arthritis location: multiple sites Rheumatoid factor presence: unspecified presence Qualified Code(s): M06.9 - Rheumatoid arthritis, unspecified Subjective Date of service: 07/11/19 Principal diagnosis: pericardial effusion Interval history: pt resting comfortably in bed, states he is feeling better. Objective Last Vital Signs Temp 98.2 F 07/11/19 09:02 Pulse 101 H 07/11/19 09:02 Resp 18 07/11/19 09:02 BP 110/73 07/11/19 09:02 Pulse Ox 100 07/11/19 09:02 - Physical Examination General: No Apparent Distress HEENT: Positive: PERRL Neck: Positive: neck supple Cardiac: Positive: Reg Rate and Rhythm, S1/S2 Lungs: Positive: Decreased Breath Sounds Neuro: Positive: Other (deferred) Abdomen: Positive: Unremarkable /Rectal: Other (deferred) Skin: Positive: Clear Musculoskeletal: Decreased Range of Motion, other (bedridden) Extremities: Present: Other (contracted) - Labs and Meds CBC 07/11/19 Range/Units 05:31 WBC 6.7 (4.5-11.0) K/mm3 RBC 4.18 (3.65-5.03) M/mm3 Hgb 11.4 L (11.8-15.2) gm/dl Hct 34.1 L (35.5-45.6) % Plt Count 250 (140-440) K/mm3 Comprehensive Metabolic Panel 07/11/19 Range/Units 05:31 Sodium 141 (137-145) mmol/L Potassium 3.7 (3.6-5.0) mmol/L Chloride 102.8 (98-107) mmol/L Carbon Dioxide 27 (22-30) mmol/L BUN 9 (9-20) mg/dL Creatinine 0.4 L (0.8-1.5) mg/dL Glucose 94 (75-100) mg/dL Calcium 8.3 L (8.4-10.2) mg/dL - Imaging and Cardiology Echo: pending, report reviewed (07/10/19: EF 55-60%. Moderate pericardial effusion with no evidence of tamponade. )
== END 2019-07-11 16:30 | disposition home health service (06) | DRG 314 ==
LOC: ED 13:36 → 4A 17:17
PROVIDERS: ADMIT Internal Medicine; ATTEND Hospitalist
DX: I30.9 Acute pericarditis, unspecified (principal); R53.2 Functional quadriplegia; M08.09 Unspecified juvenile rheumatoid arthritis, multiple sites; M24.50 Contracture, unspecified joint; Z72.89 Other problems related to lifestyle; Z79.899 Other long term (current) drug therapy; Z74.01 Bed confinement status; Z86.718 Personal history of other venous thrombosis and embolism; Z79.01 Long term (current) use of anticoagulants; Z82.49 Family history of ischemic heart disease and other diseases of the circulatory system; Z79.82 Long term (current) use of aspirin; Z87.81 Personal history of (healed) traumatic fracture; I31.4 Cardiac tamponade
CPT/HCPCS: 36415; 71045; 78582; 80048; 80053; 80076; 80307; 81001; 83036; 84484; 85025; 85027; 85379; 85610; 85652; 85730; 86038; 86140; 86618; 93005; 93010; 93306; 93970; G0378; A9540; A9558; J1170; J2270; J7030